=== PATIENT | female | born 1985 | race African-American/Black ===

== ENCOUNTER 2017-04-01 00:20 | Inpatient (IN) ==
[2017-04-01] MEDS ORDERED: ONDANSETRON 4 MG/2 ML VIAL IV PRN ×2 (00:42→11:59)
[2017-04-01] MEDS ORDERED: BUTORPHANOL 2 MG/ML VIAL IV PRN (00:42)
[2017-04-01 00:56] LABS: Basophils % 0.4 % (0.0-0.8); Eosinophils # 0.2 10*3/uL (0.0-0.87); Eosinophils % 2.7 % (0.00-10.9); Hematocrit 33.5 VOL% (35.7-47.0); Hemoglobin 11.3 GM/DL (12.0-16.0); Immature Granulocytes % 0.4 %; Immature Granulocytes Absolute 0.03 #; Lymphocytes # 2.2 10*3/uL (1.4-4.0); Lymphocytes % 27.3 % (21.3-54.2); Mean Corpuscular HGB Conc 33.7 GM/DL (32-36); Mean Corpuscular Hemoglobin 35 PG (27-34); Mean Platelet Volume 10.8 FL (9.6-12.0); Monocytes # 0.7 10*3/uL (0.11-0.8); Monocytes % 8.4 % (1.7-12.7); Neutrophils # 4.9 10*3/uL (1.4-7.4); Neutrophils % 60.8 % (38.7-73.9); Platelet Count 212 T/CUMM (130-400); Red Blood Count 3.19 MC/CUMM (3.8-5.5); Red Cell Distribution Width 12.5 % (9.3-17.3); White Blood Count 8.1 T/CUMM (4-12)
[2017-04-01] MEDS: LACTATED RINGERS 1,000 ML IV SCH ×2 (01:30→04:46)
[2017-04-01 01:34] LABS: Alanine Aminotransferase 21 U/L (13-56); Albumin 2.9 G/DL (3.4-5.0); Alkaline Phosphatase 239 U/L (45-117); Aspartate Amino Transferase 27 U/L (0-37); Bilirubin,Total < 0.39 MG/DL (0.2-1.0); Blood Urea Nitrogen 3 MG/DL (7-18); Calcium 9.1 MG/DL (8.5-10.1); Glucose 85 MG/DL (74-106); Osmolality,Calculated 272.5 MOS/KG (273-304); Potassium 3.5 MMOL/L (3.5-5.1); Sodium 139 MMOL/L (136-145); Total Protein 7.4 G/DL (6.4-8.3)
[2017-04-01] MEDS ORDERED: CITRIC ACID/SODIUM CITRATE 30 ML UDCUP PO ONE (08:28)
[2017-04-01] MEDS ORDERED: FAMOTIDINE 20 MG/2 ML VIAL IV ONE (08:28)
[2017-04-01] MEDS ORDERED: ePHEDrine 50 MG/ML AMP IV PRN (08:28)
[2017-04-01] MEDS ORDERED: LACTATED RINGERS 1,000 ML IV ONE (08:28)
[2017-04-01] MEDS ORDERED: diphenhydrAMINE 50 MG/1 ML VIAL IV PRN ×2 (08:29)
[2017-04-01] MEDS ORDERED: hydrOXYzine HCL 25 MG/1 ML VIAL IM PRN (08:29)
[2017-04-01] MEDS ORDERED: PROMETHAZINE 25 MG/1 ML VIAL IM ONE (08:29)
[2017-04-01] MEDS ORDERED: fentaNYL 2 MCG/ROPIV 0.2% EPID 150 ML EPIDURAL SCH (08:30)
[2017-04-01] MEDS ORDERED: miSOPROStol 200 MCG TABLET ONE (08:41)
[2017-04-01] MEDS ORDERED: CARBOPROST TROMETHAMINE 250 MCG/ML AMP IM ONE (08:42)
[2017-04-01] MEDS ORDERED: METHYLERGONOVINE 0.2 MG/1 ML AMP ONE (08:42)
[2017-04-01] MEDS ORDERED: OXYTOCIN/LR 20 UNIT/1,000 ML BAG IV ONE (08:42)
[2017-04-01] MEDS ORDERED: IBUPROFEN 800 MG TABLET PO PRN (11:59)
[2017-04-01] MEDS ORDERED: BISACODYL 10 MG SUPP RECTAL PRN (11:59)
[2017-04-01] MEDS ORDERED: MAGNESIUM HYDROXIDE SUSP 30 ML UDCUP PO PRN (11:59)
[2017-04-01] MEDS ORDERED: ACETAMINOPHEN 325 MG TABLET PO PRN (11:59)
[2017-04-01] MEDS ORDERED: LACTATED RINGERS 1,000 ML IV SCH (12:00)
[2017-04-01] MEDS: DOCUSATE SODIUM 100 MG CAPSULE PO SCH (20:49)
[2017-04-02 06:14] LABS: Basophils % 0.3 % (0.0-0.8); Eosinophils # 0.3 10*3/uL (0.0-0.87); Eosinophils % 3.7 % (0.00-10.9); Hematocrit 31.6 VOL% (35.7-47.0); Hemoglobin 10.3 GM/DL (12.0-16.0); Immature Granulocytes % 0.7 %; Immature Granulocytes Absolute 0.06 #; Lymphocytes # 2.2 10*3/uL (1.4-4.0); Lymphocytes % 25.5 % (21.3-54.2); Mean Corpuscular HGB Conc 32.6 GM/DL (32-36); Mean Corpuscular Hemoglobin 35 PG (27-34); Mean Corpuscular Volume 106.8 FL (87-102); Mean Platelet Volume 11.7 FL (9.6-12.0); Monocytes # 0.7 10*3/uL (0.11-0.8); Neutrophils # 5.3 10*3/uL (1.4-7.4); Neutrophils % 61.8 % (38.7-73.9); Platelet Count 186 T/CUMM (130-400); Red Blood Count 2.96 MC/CUMM (3.8-5.5); Red Cell Distribution Width 12.5 % (9.3-17.3); White Blood Count 8.6 T/CUMM (4-12)
[2017-04-02] MEDS: MULTIVITAMIN (PRENATAL) TABLET PO SCH (09:00)
[2017-04-02] MEDS: DOCUSATE SODIUM 100 MG CAPSULE PO SCH ×2 (09:00→22:50)
[2017-04-02] MEDS: FERROUS SULFATE 325 MG TABLET PO SCH (09:00)
[2017-04-03 07:18] VITALS: BP 117/71
[2017-04-03] MEDS: MULTIVITAMIN (PRENATAL) TABLET PO SCH (08:35)
[2017-04-03] MEDS: FERROUS SULFATE 325 MG TABLET PO SCH (08:35)
[2017-04-03] MEDS: DOCUSATE SODIUM 100 MG CAPSULE PO SCH (08:35)
== END 2017-04-03 12:05 | disposition home or self-care (01) | DRG 560 ==
LOC: N.LD 00:20 → N.OB 10:35
PROVIDERS: ADMIT Obstetrics & Gynecology; ATTEND Obstetrics & Gynecology

== ENCOUNTER 2018-06-09 05:15 | Inpatient (IN) ==
[2018-06-09] MEDS ORDERED: BUTORPHANOL 2 MG/ML VIAL IV PRN (05:27)
[2018-06-09] MEDS ORDERED: ONDANSETRON 4 MG/2 ML VIAL IV PRN (05:27)
[2018-06-09] MEDS ORDERED: OXYTOCIN/LR 20 UNIT/1,000 ML BAG IV SCH (05:30)
[2018-06-09] MEDS: LACTATED RINGERS 1,000 ML IV SCH ×2 (05:45→08:55)
[2018-06-09 05:50] LABS: Basophils % 0.5 % (0.0-0.8); Eosinophils # 0.3 10*3/uL (0.0-0.87); Eosinophils % 3.9 % (0.00-10.9); Hematocrit 34.5 VOL% (35.7-47.0); Hemoglobin 10.7 GM/DL (12.0-16.0); Immature Granulocytes % 0.6 %; Immature Granulocytes Absolute 0.04 #; Lymphocytes % 29.6 % (21.3-54.2); Mean Corpuscular Volume 110.9 FL (87-102); Mean Platelet Volume 11.1 FL (9.6-12.0); Monocytes % 8.9 % (1.7-12.7); Neutrophils % 56.5 % (38.7-73.9); Platelet Count 169 T/CUMM (130-400); Red Blood Count 3.11 MC/CUMM (3.8-5.5); Red Cell Distribution Width 13.3 % (9.3-17.3); White Blood Count 6.7 T/CUMM (4-12)
[2018-06-09 06:05] LABS: Apearance,Urine Slightly Hazy (Clear); Bacteria,Urine Occasional /HPF (Few); Bilirubin,Urine Negative (Negative); Blood, Urine Negative (Negative); Glucose,Urine (UA) Negative (Negative); Ketones,Urine Negative (Negative); Mucus,Urine Occasional /LPF (Occasional); Nitrite,Urine Negative (Negative); Protein,Urine Negative; RBC,Urine 2 /HPF (0-4); Squamous Epithelial Cell,Urine Few /HPF (0-10); Urine Color Yellow (Yellow); Urine Specific Gravity 1.009 (1.001-1.035); Urine Urobilinogen < 2.0 EU/DL (0.2-1.0); WBC,Urine 2 /HPF (0-6)
[2018-06-09 06:06] LABS: Albumin 2.5 G/DL (3.4-5.0); Bilirubin,Total 0.6 MG/DL (0.2-1.0); Calcium 8.8 MG/DL (8.5-10.1); Osmolality,Calculated 272.5 MOS/KG (273-304); Total Protein 6.7 G/DL (6.4-8.3)
[2018-06-09 06:24] LABS: Anisocytosis Slight; Platelet Estimate Adequate
[2018-06-09] MEDS ORDERED: METHYLERGONOVINE 0.2 MG/1 ML AMP ONE (09:50)
[2018-06-09] MEDS ORDERED: miSOPROStol 200 MCG TABLET ONE (09:50)
[2018-06-09] MEDS ORDERED: IBUPROFEN 800 MG TABLET PO PRN (14:07)
[2018-06-09] MEDS ORDERED: MAGNESIUM HYDROXIDE SUSP 30 ML UDCUP PO PRN (14:07)
[2018-06-09] MEDS ORDERED: BISACODYL 10 MG SUPP RECTAL PRN (14:07)
[2018-06-09] MEDS ORDERED: ACETAMINOPHEN 325 MG TABLET PO PRN (14:07)
[2018-06-09] MEDS ORDERED: ACETAMINOPHEN/CODEINE 300-30 MG TABLET PO PRN (14:14)
[2018-06-09] MEDS ORDERED: LACTATED RINGERS 1,000 ML IV SCH (14:30)
[2018-06-09] MEDS ORDERED: OXYTOCIN/LR 20 UNIT/1,000 ML BAG IV ONE (17:08)
[2018-06-09] MEDS: DOCUSATE SODIUM 100 MG CAPSULE PO SCH (20:17)
[2018-06-10 04:37] LABS: Basophils # 0.1 10*3/uL (0.0-0.2); Basophils % 0.4 % (0.0-0.8); Eosinophils # 0.4 10*3/uL (0.0-0.87); Eosinophils % 3.2 % (0.00-10.9); Hematocrit 31.6 VOL% (35.7-47.0); Hemoglobin 10.2 GM/DL (12.0-16.0); Immature Granulocytes % 0.5 %; Immature Granulocytes Absolute 0.06 #; Lymphocytes # 2.7 10*3/uL (1.4-4.0); Lymphocytes % 23.4 % (21.3-54.2); Mean Corpuscular HGB Conc 32.3 GM/DL (32-36); Mean Corpuscular Volume 109.3 FL (87-102); Mean Platelet Volume 11.4 FL (9.6-12.0); Monocytes % 8.3 % (1.7-12.7); Neutrophils % 64.2 % (38.7-73.9); Platelet Count 167 T/CUMM (130-400); Red Blood Count 2.89 MC/CUMM (3.8-5.5); Red Cell Distribution Width 12.9 % (9.3-17.3); White Blood Count 11.6 T/CUMM (4-12)
[2018-06-10] MEDS: DOCUSATE SODIUM 100 MG CAPSULE PO SCH ×2 (09:31→20:37)
[2018-06-10] MEDS: MULTIVITAMIN (PRENATAL) TABLET PO SCH (09:31)
[2018-06-11 07:27] VITALS: BP 113/52
[2018-06-11] MEDS: MULTIVITAMIN (PRENATAL) TABLET PO SCH (09:58)
[2018-06-11] MEDS: DOCUSATE SODIUM 100 MG CAPSULE PO SCH (09:58)
== END 2018-06-11 14:05 | disposition home or self-care (01) | DRG 560 ==
LOC: N.LDOUT 05:15 → N.LD 05:16 → N.OB 13:14
PROVIDERS: ADMIT Obstetrics & Gynecology; ATTEND Obstetrics & Gynecology